=== PATIENT | female | born 1980 | race Hispanic/Latino ===

== ENCOUNTER 2017-08-30 07:20 | Emergency (ER) | payer OTHER ==
[2017-08-30 07:52] VITALS: O2SAT 98
[2017-08-30] MEDS ORDERED: Sodium Chloride 0.9% 1,000 ML IV STA (08:31)
[2017-08-30 08:45] LABS: BASO % 0.5 % (0.0-2.0); EOS % 0.5 % (0.0-4.0); HEMOGLOBIN 13.7 g/dL (12.0-16.0); LYMPH # 1.2 K/uL (1.0-4.3); LYMPH % 15.9 % (20.0-40.0); MEAN CELL VOLUME 86.3 fl (81.0-99.0); MEAN CORPUSCULAR HEMOGLOBIN 29.3 pg (27.0-31.0); MEAN CORPUSCULAR HGB CONC 33.9 g/dL (33.0-37.0); MEAN PLATELET VOLUME 8.2 fl (7.2-11.7); MONO # 0.4 K/uL (0.0-0.8); MONO % 5.3 % (0.0-10.0); NEUT # 6.1 K/uL (1.8-7.0); NEUT % 77.8 % (50.0-75.0); RBC 4.69 Mil/uL (3.80-5.20); RED CELL DISTRIBUTION WIDTH 12.1 % (11.5-14.5); WHITE BLOOD COUNT 7.8 K/uL (4.8-10.8)
[2017-08-30 09:09] LABS: BLOOD UREA NITROGEN 9 mg/dl (7-17); CALCIUM 8.9 mg/dL (8.4-10.2); GFR AFRICAN-AMERICAN > 60; GFR NON-AFRICAN AMERICAN > 60
--- NOTE | 2017-08-30 10:32 | US ---
HISTORY: syncope abdominal pain ; patient is . Patient's last menstrual period was 07/19/2017 indicating estimated gestational age of 6 weeks 0 days. COMPARISON: None available. TECHNIQUE: Transvaginal pelvic ultrasound was performed with longitudinal and transverse images submitted for interpretation. FINDINGS: UTERUS: Measures 9.4 x 7.0 x 5.6 cm. Uterus is mildly enlarged as expected given the presence of the gestational sac within the endometrial cavity. No definite myometrial lesion is a demonstrated throughout the uterus. ENDOMETRIUM: A gestational sac is identified within the endometrial cavity with mean sac diameter of 1.02 cm suggesting an estimated gestational age of 5 weeks 0 days. The yolk sac is identified, however, no pole is appreciable. Viability of gestation is not been proven. CERVIX: No cervical abnormality identified. RIGHT OVARY: Measures 3.1 x 2.6 x 1.4 cm. No solid mass. Normal flow. LEFT OVARY: Measures 3.4 x 4.3 x 3.1 cm. No solid mass. Normal flow. A likely corpus luteum cyst identified measuring 2.7 x 2.5 x 2.4 cm laterally in the left ovary. More medial to this cyst is an additional smaller cyst which has internal debris measuring 1.6 x 1.5 x 1.1 cm which is a nonspecific likely proteinaceous cyst. FREE FLUID: No significant free fluid noted. OTHER FINDINGS: None. IMPRESSION: Intrauterine gestation is identified with yolk sac but no pole. Viability is not been proven though this may simply represent an early viable intrauterine gestation. The study is estimated gestational age is 5 weeks 0 days which is concordant with menstrual dates as described above but there is no pole identified at this time and clinical correlation is advised as well as 1 week sonographic follow-up. Two left adnexal cysts as discussed above.
[2017-08-30] MEDS ORDERED: Benzoin Compund Tincture 30 ML TP ONE (13:24)
--- NOTE | 2017-08-30 14:58 | ED PDOC ---
Syncope/Near Syncope/Dizziness Time Seen by Provider: 08/30/17 07:48 Chief Complaint (Nursing): Dizziness/Lightheaded Chief Complaint (Provider): Syncope History Per: Patient History/Exam Limitations: no limitations Onset/Duration Of Symptoms: Hrs (x1) Additional Complaint(s): 36 y/o female presents to the ER for evaluation after a syncopal episode occurring 1 hour prior to arrival. Patient states she was having abdominal cramps, and went to the bathroom to have a bowel movement. While straining, she passed out and then woke up on the floor with a nose bleed. Patient then successfully had a bowel movement and her abdominal discomfort resolved. She denies any shortness of breath or chest pain prior to syncope. Now patient is complaining of nose pain and headache. Of note, patient is 6 weeks . Denies vaginal bleeding. HAIR SAMPLE MATCHER: Dr. Rogers Past Medical History Reviewed: Historical Data, Nursing Documentation, Vital Signs Vital Signs: Last Vital Signs Temp 98.5 F 08/30/17 07:30 Pulse 80 08/30/17 07:30 Resp 18 08/30/17 07:30 BP 129/74 08/30/17 07:30 Pulse Ox 98 08/30/17 07:47 - Medical History PMH: No Chronic Diseases - Surgical History Surgical History: No Surg Hx - Family History Family History: States: Unknown Family Hx - Social History Current smoker - smoking cessation education provided: No Alcohol: None Drugs: Denies - Immunization History Hx Tetanus Toxoid Vaccination: No Hx Influenza Vaccination: No Hx Pneumococcal Vaccination: No - Allergies Allergies/Adverse Reactions: Allergies Allergy/AdvReac Type Severity Reaction Status Date / Time No Known Allergies Allergy Verified 08/30/17 08:09 Review of Systems ROS Statement: Except As Marked, All Systems Reviewed And Found Negative ENT: Positive for: Nose Pain (and nose bleed) Cardiovascular: Negative for: Chest Pain Respiratory: Negative for: Shortness of Breath Gastrointestinal: Negative for: Abdominal Pain (now resolved) Genitourinary Female: Negative for: Vaginal Bleeding Skin: Positive for: Lesions (to nose and face) Neurological: Positive for: Headache, Other (syncope) Physical Exam - Reviewed Nursing Documentation Reviewed: Yes Vital Signs Reviewed: Yes - Physical Exam Appears: Positive for: Non-toxic, No Acute Distress Head Exam: Positive for: NORMOCEPHALIC (with abrasion at bridge of nose, and small swollen area at forehead - no ecchymosis) Skin: Positive for: Normal Color, Warm, Dry Eye Exam: Positive for: EOMI, Normal appearance, PERRL ENT: Positive for: Other (Dried blood in both nares, no active bleeding. No septal hematoma) Neck: Positive for: Normal, Painless ROM Cardiovascular/Chest: Positive for: Regular Rate, Rhythm. Negative for: Murmur Respiratory: Positive for: Normal Breath Sounds. Negative for: Respiratory Distress Gastrointestinal/Abdominal: Positive for: Normal Exam, Soft. Negative for: Tenderness Back: Positive for: Normal Inspection. Negative for: Vertebral Tenderness Extremity: Positive for: Normal ROM. Negative for: Pedal Edema, Deformity Neurologic/Psych: Positive for: Alert, nail maker II-XII (intact), Oriented, Cerebellar Tests (normal), Gait (steady). Negative for: Motor/Sensory Deficits , Aphasia, Facial Droop - Laboratory Results Result Diagrams: 08/30/17 08:38 08/30/17 08:38 - ECG ECG: Positive for: Interpreted By Me, Viewed By Me ECG Rhythm: Positive for: Normal QRS, Normal ST Segment, Sinus Rhythm. Negative for: ST/T Changes Rate: 69 O2 Sat by Pulse Oximetry: 98 (RA) Pulse Ox Interpretation: Normal Medical Decision Making Medical Decision Making: Initial Impression: 1. Syncopal episode, rule out cardiac vs. vasovagal 2. Head injury, differential includes intracranial bleed 3. Abdominal pain in , differentials include: ectopic , other complication Time: 8:26 Initial Plan: --BMP --Troponin I --Beta-HCG quantitative --CBC w/ differential --EKG --Tdap 0.5 ml IM --NS IV 1000 ml at 1000 mls/hr --Pending US OB Transvaginal --Consider CT Head Discussed risks and benefits of CT Head to rule out intracranial bleed. Patient is refusing CT Head at this time due to her . She agrees with the rest of the evaluation. Time: 10:31 OB ULTRASOUND: FINDINGS: UTERUS: Measures 9.4 x 7.0 x 5.6 cm. Uterus is mildly enlarged as expected given the presence of the gestational sac within the endometrial cavity. No definite myometrial lesion is a demonstrated throughout the uterus. ENDOMETRIUM: A gestational sac is identified within the endometrial cavity with mean sac diameter of 1.02 cm suggesting an estimated gestational age of 5 weeks 0 days. The yolk sac is identified, however, no pole is appreciable. Viability of gestation is not been proven. CERVIX: No cervical abnormality identified. RIGHT OVARY: Measures 3.1 x 2.6 x 1.4 cm. No solid mass. Normal flow. LEFT OVARY: Measures 3.4 x 4.3 x 3.1 cm. No solid mass. Normal flow. A likely corpus luteum cyst identified measuring 2.7 x 2.5 x 2.4 cm laterally in the left ovary. More medial to this cyst is an additional smaller cyst which has internal debris measuring 1.6 x 1.5 x 1.1 cm which is a nonspecific likely proteinaceous cyst. FREE FLUID: No significant free fluid noted. OTHER FINDINGS: None. IMPRESSION: Intrauterine gestation is identified with yolk sac but no pole. Viability is not been proven though this may simply represent an early viable intrauterine gestation. The study is estimated gestational age is 5 weeks 0 days which is concordant with menstrual dates as described above but there is no pole identified at this time and clinical correlation is advised as well as 1 week sonographic follow-up. Two left adnexal cysts as discussed above. Labs reviewed, and are grossly normal. [place] [address].00 Time: 14:50 Upon reevaluation, patient states headache is gone and she feels better. At this time, according to guidelines for CT Head, she does not require the study. However, I also discussed possibility the rare clinicall non significant intracranial bleeding that can be missed based on guidelines. MRI brain per radiologist is not sensitive to rule out ICH. Patient would like to forego imaging at this time. Scribe Attestation: Documented by Danyelle Dean, acting as a scribe for Philly Jonas MD Provider Scribe Attestation: All medical record entries made by the Scribe were at my direction and personally dictated by me. I have reviewed the chart and agree that the record accurately reflects my personal performance of the history, physical exam, medical decision making, and the department course for this patient. I have also personally directed, reviewed, and agree with the discharge instructions and disposition. Disposition - Clinical Impression Clinical Impression: Head injury, Syncope, Abdominal pain affecting , Threatened , Nose injury - Patient ED Disposition Is Patient to be Admitted: No Doctor Will See Patient In The: Office Counseled Patient/Family Regarding: Studies Performed, Diagnosis, Need For Followup - Disposition Referrals: Ava Rogers MD [Staff Provider] - Disposition: Routine/Home Disposition Time: 15:05 Condition: GOOD Additional Instructions: Return for worsening. Follow up with your PCP in 2-3 days. Instructions: Syncope (ED), Head Injury (ED), Abdominal Pain in (ED) - POA Present On Arrival: Falls Or Trauma
[2017-08-30 15:06] VITALS: BP 110/71; RESP 20; TEMP 98
[2017-08-30 15:43] VITALS: PULSE 69
--- NOTE | 2017-08-31 08:44 | CARD ---
APPROVED REPORT EKG Measurement Heart [id number] <Conclusion> Normal sinus rhythm with sinus arrhythmia Normal ECG
== END 2017-08-30 15:06 | disposition home or self-care (01) ==
LOC: MERGE 07:20 → H.ER 07:20
DX: R55 Syncope and collapse (principal); S09.90XA Unspecified injury of head, initial encounter; S09.92XA Unspecified injury of nose, initial encounter; O9A.211 Injury, poisoning and certain other consequences of external causes complicating pregnancy, first trimester; W19.XXXA Unspecified fall, initial encounter; Y92.002 Bathroom of unspecified non-institutional (private) residence as the place of occurrence of the external cause; O26.891 Other specified pregnancy related conditions, first trimester; O20.0 Threatened abortion; Z3A.01 Less than 8 weeks gestation of pregnancy
CPT/HCPCS: 76817; 80048; 81025; 82948; 84484; 84702; 85025; 93005; 96360; 99285; J7040